=== PATIENT | male | born 1975 | race African-American/Black ===

== ENCOUNTER 2021-09-13 09:04 | Outpatient (CLI) | payer BC | END 2021-09-13 09:05 | disposition home or self-care (01) | LOC: MRI 09:04 | PROVIDERS: ATTEND Neurological Surgery | DX: M47.26 Other spondylosis with radiculopathy, lumbar region (principal); M54.50 Low back pain, unspecified; M48.061 Spinal stenosis, lumbar region without neurogenic claudication; M48.07 Spinal stenosis, lumbosacral region; M51.37 Other intervertebral disc degeneration, lumbosacral region; M51.27 Other intervertebral disc displacement, lumbosacral region; M43.17 Spondylolisthesis, lumbosacral region | CPT/HCPCS: 72120; 72148 ==

== ENCOUNTER 2021-10-15 15:47 | Outpatient (CLI) | payer BC ==
[2021-10-15 17:44] LABS: Hemoglobin 12.5 g/dL (13.5-17.5); Mean Corpuscular HGB CONC 34.7 g/dL (32.0-36.0); Mean Corpuscular Hemoglobin 31.6 pg (27.0-33.0); Mean Corpuscular Volume 90.9 fl (81.2-95.1); Mean Platelet Volume 12.8 fl (7.4-10.4); Platelet Count 270 10x3/uL (150-450); Red Blood Cell (RBC) Count 3.96 10x6/uL (4.32-5.72); White Blood Cell (WBC) Count 5.9 10x3/uL (3.5-10.5)
[2021-10-15 17:46] LABS: Anion Gap 13 mmol/L (10-20); BUN (Urea Nitrogen) 18 mg/dL (8.9-20.6); Calc. Creatinine Clearance 0 mL/min (70-130); Calcium 9.3 mg/dL (7.8-10.44); Carbon Dioxide 26 mmol/L (22-29); Chloride 106 mmol/L (98-107); Glucose 118 mg/dL (70-105); Potassium 3.7 mmol/L (3.5-5.1); Sodium 141 mmol/L (136-145)
[2021-10-16 18:28] LABS: SARS-CoV-2 PCR by NAA DETECTED (NotDetected)
== END 2021-10-15 15:48 | disposition home or self-care (01) ==
LOC: LABBT 15:47
PROVIDERS: ATTEND Neurological Surgery
DX: U07.1 COVID-19 (principal); Z01.818 Encounter for other preprocedural examination; M51.17 Intervertebral disc disorders with radiculopathy, lumbosacral region
CPT/HCPCS: 80048; 85027; 93005; 93010; U0003; U0005

== ENCOUNTER 2021-11-19 14:59 | Outpatient (CLI) | payer BC ==
[2021-11-19 15:20] LABS: Hemoglobin 13.6 g/dL (13.5-17.5); Mean Corpuscular HGB CONC 34.6 g/dL (32.0-36.0); Mean Corpuscular Hemoglobin 31.6 pg (27.0-33.0); Mean Corpuscular Volume 91.4 fl (81.2-95.1); Mean Platelet Volume 12.3 fl (7.4-10.4); Platelet Count 173 10x3/uL (150-450); RBC Distribution Width 11.2 % (11.5-14.5); White Blood Cell (WBC) Count 5.7 10x3/uL (3.5-10.5)
== END 2021-11-19 15:00 | disposition home or self-care (01) ==
LOC: LABBT 14:59
PROVIDERS: ATTEND Neurological Surgery
DX: Z01.812 Encounter for preprocedural laboratory examination (principal); M51.17 Intervertebral disc disorders with radiculopathy, lumbosacral region
CPT/HCPCS: 85027

== ENCOUNTER 2021-11-22 11:06 | Day surgery (SDC) | payer BC ==
[2021-10-15 10:35] VITALS: BMI 25.7
[2021-11-22] MEDS ORDERED: Midazolam HCl 2 mg/2 ml Vial ONE (13:19)
[2021-11-22] MEDS ORDERED: Famotidine/PF 20 mg/2ml Vial ONE (13:19)
[2021-11-22] MEDS ORDERED: Thrombin 5000 UNITS/5 ML VIAL ONE (13:50)
[2021-11-22] MEDS ORDERED: EPINEPHrine 1 MG/ML AMP ONE (13:50)
[2021-11-22] MEDS ORDERED: Bupivacaine PF 0.5% 30 ML VIAL ONE (13:50)
[2021-11-22] MEDS ORDERED: Neomycin-Polymyxin 1 ML AMP ONE (13:50)
[2021-11-22] MEDS ORDERED: Fentanyl 250 MCG/5 ML VIAL ONE ×2 (14:19→17:09)
[2021-11-22] MEDS ORDERED: Lidocaine 2% Jelly 5 ML TUBE ONE (14:19)
[2021-11-22] MEDS ORDERED: ceFAZolin Sodium (SDC) 2 GM/100 ML BAG ONE (14:32)
[2021-11-22] MEDS ORDERED: Rocuronium Bromide 10 MG/ML (10ML VIAL) ONE (14:36)
[2021-11-22] MEDS ORDERED: Dexamethasone 20 MG/5 ML VIAL ONE (14:36)
[2021-11-22] MEDS ORDERED: Metoprolol Tartrate 5 MG/5 ML VIAL ONE (14:36)
[2021-11-22] MEDS ORDERED: Lidocaine 1% PF 5 ML VIAL ONE (14:36)
[2021-11-22] MEDS ORDERED: Labetalol HCl 100 MG/20 ML VIAL ONE (14:36)
[2021-11-22] MEDS ORDERED: PROPOFOL 200 MG/20 ML VIAL ONE (14:36)
[2021-11-22] MEDS ORDERED: Ondansetron PF 4 MG/2 ML Vial ONE (14:36)
[2021-11-22] MEDS ORDERED: GLYCOPYRROLATE/PF 0.2 MG/ML VIAL ONE (14:36)
[2021-11-22] MEDS ORDERED: hydrALAZINE 20 MG/ML VIAL ONE ×2 (15:07→15:57)
[2021-11-22] MEDS ORDERED: HYDROmorphone 0.5 MG/0.5 ML SYRINGE ONE (17:09)
[2021-11-22] MEDS ORDERED: HYDROcodone/Acetaminophen 5/325 mg Tablet ONE (18:27)
== END 2021-11-22 19:00 | disposition home or self-care (01) ==
LOC: SDC 11:06
PROVIDERS: ATTEND Neurological Surgery
PROC: 01NR0ZZ Release Sacral Nerve, Open Approach (ICD-10-PCS; principal; 2021-11-22)
PROC: 0SB40ZZ Excision of Lumbosacral Disc, Open Approach (ICD-10-PCS; principal; 2021-11-22)
DX: M51.17 Intervertebral disc disorders with radiculopathy, lumbosacral region (principal); M48.07 Spinal stenosis, lumbosacral region; Q76.49 Other congenital malformations of spine, not associated with scoliosis; I10 Essential (primary) hypertension
CPT/HCPCS: 76000; J0171; J0360; J0690; J1100; J1170; J2250; J2405; J2704; J3010; J3370; J3490; S0020; S0028

== ENCOUNTER 2023-03-14 21:03 | Inpatient (IN) | payer BC, SELFPAY ==
[2023-03-14] MEDS ORDERED: Ondansetron PF 4 MG/2 ML Vial ONE (23:53)
[2023-03-15 00:14] LABS: #Basophils 0.1 thou/uL (0.0-0.2); #Eosinphils 0.1 thou/uL (0.0-0.7); #Monocytes 0.6 thou/uL (0.11-0.59); #Neutrophils 2.5 thou/uL (1.40-6.50); %Eosinophils 2.2 % (0.0-10.0); %Lymphocytes 43.6 % (21.0-51.0); %Monocytes 9.8 % (0.0-10.0); %Neutrophils 43.2 % (42.0-75.0); Hemoglobin 16.5 g/dL (14.0-18.0); Mean Corpuscular HGB CONC 35.9 g/dL (32.0-36.0); Mean Corpuscular Hemoglobin 31.7 pg (27.0-31.0); Mean Corpuscular Volume 88.3 fl (78.0-98.0); Mean Platelet Volume 12.1 fL (7.4-10.4); Platelet Count 210 10x3/uL (130-400); RBC Distribution Width 11.1 % (11.5-14.5); White Blood Cell (WBC) Count 5.8 10x3/uL (4.8-10.8)
[2023-03-15 00:36] LABS: ALT (SGPT) 24 U/L (8-55); AST (SGOT) 44 U/L (5-34); Albumin 5.3 g/dL (3.5-5.0); Alkaline Phosphatase 82 U/L (40-110); Anion Gap 15 mmol/L (10-20); BUN (Urea Nitrogen) 72 mg/dL (8.9-20.6); Bilirubin, Total 0.8 mg/dL (0.2-1.2); Calc. Creatinine Clearance 0 mL/min (70-130); Calcium 10.2 mg/dL (7.8-10.44); Carbon Dioxide 24 mmol/L (22-29); Chloride 98 mmol/L (98-107); Estimated GFR 22; Globulin 5.2 g/dL (2.4-3.5); Glucose 96 mg/dL (70-105); Lipase 46 U/L (8-78); Potassium 3.6 mmol/L (3.5-5.1); Protein, Total 10.5 g/dL (6.0-8.3); Sodium 133 mmol/L (136-145)
[2023-03-15 00:58] LABS: CKMB 18.6 ng/mL (0-6.6)
[2023-03-15] MEDS ORDERED: Clopidogrel Bisulfate 75 MG TAB ONE (01:10)
[2023-03-15] MEDS ORDERED: Acetaminophen 650 MG Suppository PR PRN (02:00)
[2023-03-15] MEDS ORDERED: Ondansetron ODT 4 MG TAB PO PRN (02:00)
[2023-03-15] MEDS ORDERED: Acetaminophen 325 MG TAB PO PRN (02:00)
[2023-03-15] MEDS ORDERED: Ondansetron PF 4 MG/2 ML Vial IVP PRN (02:00)
[2023-03-15] MEDS: Sodium Chloride 0.9% 1,000 ML IV SCH ×3 (02:38→21:43)
[2023-03-15 03:31] LABS: #Basophils 0.1 thou/uL (0.0-0.2); #Eosinphils 0.2 thou/uL (0.0-0.7); #Monocytes 0.5 thou/uL (0.11-0.59); #Neutrophils 2.7 thou/uL (1.40-6.50); %Basophils 0.9 % (0.0-1.0); %Eosinophils 2.6 % (0.0-10.0); %Lymphocytes 40.5 % (21.0-51.0); %Monocytes 9.2 % (0.0-10.0); %Neutrophils 46.6 % (42.0-75.0); Mean Corpuscular HGB CONC 35.4 g/dL (32.0-36.0); Mean Corpuscular Hemoglobin 31.8 pg (27.0-31.0); Mean Platelet Volume 12.6 fL (7.4-10.4); Platelet Count 156 10x3/uL (130-400); RBC Distribution Width 11.2 % (11.5-14.5); White Blood Cell (WBC) Count 5.9 10x3/uL (4.8-10.8)
[2023-03-15 03:55] LABS: ALT (SGPT) 17 U/L (8-55); AST (SGOT) 33 U/L (5-34); Albumin 4.1 g/dL (3.5-5.0); Alkaline Phosphatase 64 U/L (40-110); Bilirubin, Direct 0.3 mg/dL (0.1-0.3); Bilirubin, Total 0.7 mg/dL (0.2-1.2); Protein, Total 7.9 g/dL (6.0-8.3)
[2023-03-15 03:56] LABS: Anion Gap 13 mmol/L (10-20); BUN (Urea Nitrogen) 63 mg/dL (8.9-20.6); CK (CPK) 1215 U/L (30-200); Calc. Creatinine Clearance 38 mL/min (70-130); Calcium 8.8 mg/dL (7.8-10.44); Carbon Dioxide 20 mmol/L (22-29); Chloride 104 mmol/L (98-107); Estimated GFR 30; Glucose 84 mg/dL (70-105); Potassium 3.7 mmol/L (3.5-5.1); Sodium 133 mmol/L (136-145)
[2023-03-15 03:59] LABS: Troponin I 0.011 ng/mL (< 0.028)
[2023-03-15 06:22] LABS: Bacteria/HPF None Seen HPF (None Seen); Bilirubin Negative (Negative); Blood, Urine Negative (Negative); Clarity Clear (Clear); Glucose, Urine (Dipstick) Normal (Negative); Ketone, Urine Trace mg/dL (Negative); Leukocyte Negative Leu/uL (Negative); Nitrite Negative (Negative); Protein, Urine (Dipstick) Negative (Neg-Trace); RBC/HPF 0-3 HPF (0-3); Specific Gravity, Urine 1.021 (1.002-1.036); Squamous Epithelial 0-3 HPF (0-3); Urobilinogen Normal mg/dL (Less than 2); WBC/HPF 0-3 HPF (0-3); pH, Urine 5.5 (5.0-9.0)
[2023-03-15 06:54] LABS: Troponin I Less than 0.010 ng/mL (< 0.028)
[2023-03-15 11:39] LABS: Anion Gap 11 mmol/L (10-20); BUN (Urea Nitrogen) 51 mg/dL (8.9-20.6); Calc. Creatinine Clearance 48 mL/min (70-130); Calcium 8.8 mg/dL (7.8-10.44); Carbon Dioxide 21 mmol/L (22-29); Chloride 105 mmol/L (98-107); Estimated GFR 39; Glucose 130 mg/dL (70-105); Potassium 3.7 mmol/L (3.5-5.1); Sodium 133 mmol/L (136-145)
[2023-03-15 12:18] VITALS: BMI 21.3
[2023-03-15 19:32] LABS: Phosphorus 2.6 mg/dL (2.3-4.7)
[2023-03-15] MEDS ORDERED: Loperamide HCl 2 MG CAP PO SCH (19:45)
[2023-03-15 20:43] LABS: Creatinine, Urine 152.08 mg/dL (63-166)
[2023-03-16] MEDS: Sodium Chloride 0.9% 1,000 ML IV SCH (05:31)
[2023-03-16 08:43] LABS: Anion Gap 8 mmol/L (10-20); BUN (Urea Nitrogen) 28 mg/dL (8.9-20.6); Calc. Creatinine Clearance 72 mL/min (70-130); Calcium 8.6 mg/dL (7.8-10.44); Carbon Dioxide 22 mmol/L (22-29); Chloride 108 mmol/L (98-107); Estimated GFR 64; Glucose 132 mg/dL (70-105); Potassium 3.9 mmol/L (3.5-5.1); Sodium 134 mmol/L (136-145)
[2023-03-16 13:14] VITALS: BP 153/92; TEMP 98.1
== END 2023-03-16 14:23 | disposition home or self-care (01) | DRG 683 ==
LOC: ERS 21:03 → 2NO 03-15 01:18
PROVIDERS: ADMIT Student in an Organized Health Care Education/Training Program; ATTEND Internal Medicine
DX: N17.9 Acute kidney failure, unspecified (principal); E87.1 Hypo-osmolality and hyponatremia; M62.82 Rhabdomyolysis; E87.20 Acidosis, unspecified; E86.0 Dehydration; I12.9 Hypertensive chronic kidney disease with stage 1 through stage 4 chronic kidney disease, or unspecified chronic kidney disease; N18.4 Chronic kidney disease, stage 4 (severe); D63.1 Anemia in chronic kidney disease; Z98.890 Other specified postprocedural states; Z91.011 Allergy to milk products; Z79.899 Other long term (current) drug therapy; E88.09 Other disorders of plasma-protein metabolism, not elsewhere classified; R77.8 Other specified abnormalities of plasma proteins; F12.10 Cannabis abuse, uncomplicated
CPT/HCPCS: 36415; 74150; 76770; 80048; 80053; 81001; 82550; 82553; 82570; 83690; 84100; 84156; 84484; 85025; 93005; 96361; 96374; J2405; J7050

== ENCOUNTER 2023-10-14 15:01 | Emergency (ER) | payer BC | END 2023-10-14 18:03 | disposition left against medical advice (07) | LOC: ERS 15:01 | DX: Z53.21 Procedure and treatment not carried out due to patient leaving prior to being seen by health care provider (principal) ==